=== PATIENT | male | born 1960 | race Caucasian/White ===

== ENCOUNTER 2017-06-06 08:02 | Outpatient (CLI) | payer OTHER ==
--- NOTE | 2017-06-06 10:27 | MRI ---
MRI LEFT KNEE WITHOUT CONTRAST: Date: 06/06/17 HISTORY: Left knee pain. FINDINGS: The anterior, as well as posterior cruciate ligaments are intact. There is a somewhat complex tear involving the medial meniscus. This is an obliquely oriented radial tear near the junction of the body and posterior horn. It appears to extend into the posterior horn w ith some internal meniscal change suggesting that there is some internal mucoid degenerative or horiz ontal extension of the tear into the posterior horn. The lateral meniscus also shows a tear which also has a radially oriented component involving the pos terior horn and body region. There also appears to be an undersurface component of this tear involvin g the more peripheral red zone in the body region of the meniscus. The medial, as well as lateral collateral ligaments and iliotibial band regions are unremarkable. The patellar articular cartilage shows some increased signal change in the lateral facet in an area w here there is some articular cartilage fibrillation or irregularity to the surface of the articular c artilage in this region. Medial and lateral patellar retinaculum and quadriceps and patellar tendons are intact. There appears to be some minimal quadriceps tendinopathy change and there is some edema c hange associated with the quadriceps fat pad which has a slightly convex posterior border. The patell ar tendon shows some mild tendinopathy change. IMPRESSION: 1. Bilateral meniscal tears as discussed above. 2. Mild quadriceps and patellar tendinosis. In addition, there is edema change involving the suprapa tellar fat pad consistent with a quadriceps/suprapatellar fat pad impingement. 3. There is also noted to be some edema changes along the posterior medial corner of the tibia with some associated articular cartilage loss. POS: [facility]
== END 2017-06-06 08:03 | disposition home or self-care (01) ==
LOC: TBSIIMAG 08:02
PROVIDERS: ATTEND Orthopaedic Surgery
DX: S83.207A Unspecified tear of unspecified meniscus, current injury, left knee, initial encounter (principal); S83.206A Unspecified tear of unspecified meniscus, current injury, right knee, initial encounter; R60.0 Localized edema; M25.562 Pain in left knee; M67.952 Unspecified disorder of synovium and tendon, left thigh